=== PATIENT | female | born 1960 | race Caucasian/White ===

== ENCOUNTER → 2016-11-16 | Outpatient (REF) | payer MEDICARE ==
[~2016-11-16] MED LIST: AMLO10TA2 PO; ARMO90TA PO; CIPR-249 PO; HYDR-3713 PO; LOSA100T36 PO; MOTR200T44 PO
== END ==
LOC: M SFHCLERA 11:58
PROVIDERS: ATTEND Family Medicine
DX: M79.1 Myalgia (principal); E07.9 Disorder of thyroid, unspecified; I10 Essential (primary) hypertension; E66.9 Obesity, unspecified

== ENCOUNTER → 2016-11-26 | Outpatient (CLI) | payer MEDICARE ==
[2016-11-26 11:23] LABS: BASO % 0.5 % (0.0-1.0); EOS # 0.1 K/mm3 (0.0-0.50); EOS % 2.3 % (0.0-3.0); LARGE UNSTAINED CELL # 0.2 K/mm3 (0.0-0.4); LARGE UNSTAINED CELL % 3.3 % (0.0-4.0); LYMPH % 37.9 % (24.0-44.0); MEAN CORPUSCULAR HEMOGLOBIN 30.9 pg (27.0-33.0); MEAN CORPUSCULAR HGB CONC 33.6 g/dl (32.0-36.5); MEAN CORPUSCULAR VOLUME 91.8 fl (80.0-96.0); MONO # 0.3 K/mm3 (0.0-0.8); MONO % 6.1 % (0.0-5.0); NEUTROPHILS # 2.6 K/mm3 (1.8-7.7); NEUTROPHILS % 49.9 % (36.0-66.0); PLATELET COUNT, AUTOMATED 195 k/mm3 (150-450); RED CELL DISTRIBUTION WIDTH 12.9 % (11.5-14.5); WHITE BLOOD COUNT 5.2 K/mm3 (4.0-10.0)
[2016-11-26 11:38] LABS: ALBUMIN 3.6 GM/DL (3.2-5.2); ALKALINE PHOSPHATASE 74 U/L (45-117); ALT/SGPT 54 U/L (12-78); ANION GAP 8 MEQ/L (8-16); AST/SGOT 23 U/L (15-37); BILIRUBIN,TOTAL 0.4 MG/DL (0.2-1.0); BLOOD UREA NITROGEN 17 MG/DL (7-18); CALCIUM LEVEL 8.9 MG/DL (8.5-10.1); CARBON DIOXIDE LEVEL 27 MEQ/L (21-32); CHLORIDE LEVEL 109 MEQ/L (98-107); CHOLESTEROL LEVEL 261 MG/DL (<200); CREATININE FOR GFR 0.79 MG/DL (0.55-1.02); FREE T4 0.67 NG/DL (0.76-1.46); GLOMERULAR FILTRATION RATE > 60.0 (>51); GLUCOSE, FASTING 100 MG/DL (70-105); POTASSIUM SERUM 4.6 MEQ/L (3.5-5.1); SODIUM LEVEL 144 MEQ/L (136-145); TOTAL PROTEIN 7.2 GM/DL (6.4-8.2); TRIGLYCERIDES LEVEL 119 MG/DL (<150)
== END ==
LOC: M SMT 08:56
PROVIDERS: ATTEND Family Medicine
DX: M79.1 Myalgia (principal); E07.9 Disorder of thyroid, unspecified; I10 Essential (primary) hypertension; E66.9 Obesity, unspecified; R73.01 Impaired fasting glucose

== ENCOUNTER → 2017-02-14 | Outpatient (CLI) | payer MEDICARE ==
[2017-02-14 13:42] LABS: THYROID PEROXIDASE ANTIBODY < 28.0 U/ML (<60.0)
[2017-02-14 13:55] LABS: ALBUMIN 3.8 GM/DL (3.2-5.2); ALBUMIN/GLOBULIN RATIO 1.09 (1.00-1.93); ALKALINE PHOSPHATASE 70 U/L (45-117); ALT/SGPT 49 U/L (12-78); ANION GAP 7 MEQ/L (8-16); AST/SGOT 21 U/L (7-37); BILIRUBIN,TOTAL 0.6 MG/DL (0.2-1.0); BLOOD UREA NITROGEN 10 MG/DL (7-18); CALCIUM LEVEL 9.3 MG/DL (8.5-10.1); CARBON DIOXIDE LEVEL 28 MEQ/L (21-32); CHLORIDE LEVEL 108 MEQ/L (98-107); CREATININE FOR GFR 0.77 MG/DL (0.55-1.02); FREE T4 0.94 NG/DL (0.76-1.46); GLOMERULAR FILTRATION RATE > 60.0 (>51); GLUCOSE, FASTING 93 MG/DL (70-105); POTASSIUM SERUM 4.6 MEQ/L (3.5-5.1); SODIUM LEVEL 143 MEQ/L (136-145); TOTAL PROTEIN 7.3 GM/DL (6.4-8.2)
== END ==
LOC: M SMT 11:32
PROVIDERS: ATTEND Family Medicine
DX: E03.9 Hypothyroidism, unspecified (principal); I10 Essential (primary) hypertension; M54.5 Low back pain

== ENCOUNTER → 2017-03-11 | Outpatient (REF) | payer MEDICARE ==
[2017-03-11 13:26] LABS: C REACTIVE PROTEIN QUANTITATIV 0.61 MG/DL (0.00-0.30)
[2017-03-11 14:07] LABS: ERYTHROCYTE SEDIMENTATION RATE 46 mm/hr (0-30)
== END ==
LOC: M LAB REF 11:24
DX: M35.3 Polymyalgia rheumatica (principal)
CPT/HCPCS: 86140

== ENCOUNTER → 2017-10-10 | Outpatient (CLI) | payer MEDICARE ==
[2017-10-10 18:08] LABS: THYROGLOBULIN ANTIBODY 42.6 U/ML (<60.0); THYROID PEROXIDASE ANTIBODY < 28.0 U/ML (<60.0)
[2017-10-10 18:17] LABS: FREE T3 2.8 PG/ML (2.2-4.0); FREE T4 0.99 NG/DL (0.76-1.46)
[2017-10-14 14:49] LABS: T3 REVERSE 20.2 ng/dL (9.2-24.1)
== END ==
LOC: M SMT 13:07
DX: E03.9 Hypothyroidism, unspecified (principal)
CPT/HCPCS: 84443

== ENCOUNTER → 2018-03-09 | Outpatient (REF) | payer MEDICARE ==
[~2018-03-09] MED LIST changes: -AMLO10TA2 PO; +AMLO10TA5 PO; -LOSA100T36 PO; +LOSA100T50 PO
[2018-03-09 16:12] LABS: ALBUMIN 3.8 GM/DL (3.2-5.2); ALT/SGPT 76 U/L (12-78); BILIRUBIN,TOTAL 0.5 MG/DL (0.2-1.0); BLOOD UREA NITROGEN 17 MG/DL (7-18); CALCIUM LEVEL 9.2 MG/DL (8.5-10.1); CARBON DIOXIDE LEVEL 29 MEQ/L (21-32); CHLORIDE LEVEL 103 MEQ/L (98-107); CHOLESTEROL LEVEL 276 MG/DL (<200); CHOLESTEROL RISK RATIO 4.758 (<5); CREATININE FOR GFR 0.94 MG/DL (0.55-1.30); FREE T4 0.87 NG/DL (0.76-1.46); GLOMERULAR FILTRATION RATE > 60.0 (>51); GLUCOSE, FASTING 98 MG/DL (70-100); HDL CHOLESTEROL 58 MG/DL (>40); LDL CHOLESTEROL 189 MG/DL (<100); NON-HDL-C 218 MG/DL; POTASSIUM SERUM 4.2 MEQ/L (3.5-5.1); SODIUM LEVEL 140 MEQ/L (136-145); TOTAL PROTEIN 7.1 GM/DL (6.4-8.2); TRIGLYCERIDES LEVEL 143 MG/DL (<150)
== END ==
LOC: M SMT 13:02
PROVIDERS: ATTEND Physician Assistant
DX: E03.9 Hypothyroidism, unspecified (principal); I10 Essential (primary) hypertension

== ENCOUNTER → 2018-04-10 | Outpatient (CLI) | payer MEDICARE ==
--- NOTE | 2018-04-10 17:31 | REP ---
Thyroid sonography: History: Multinodular thyroid. Comparison sonography August 21, 2012. This prior studies report as showing a 6 mm nodule in the lower pole of the right lobe. Today's sonographic findings: The thyroid isthmus is 0.3 cm thick. Right lobe dimensions are 4.6 x 1.5 x 1.2 cm. Left lobe dimensions are 4.0 x 1.4 x 1.1 cm. The nodule previously identified in the right lobe is a little larger today measuring 1.0 x 0.4 x 1.0 cm. It has well-circumscribed margin without discernible microcalcification. No other thyroid nodule seen. No extrathyroidal mass or adenopathy seen. Impression: Solitary 1 cm nodule right lobe. This has increased slightly in size from the 2013 prior study. Electronically Signed by Prince Hatch MD 04/10/2018 05:53 P
== END ==
LOC: M RAD 10:33
PROVIDERS: ATTEND Internal Medicine
DX: E04.1 Nontoxic single thyroid nodule (principal)

== ENCOUNTER → 2018-05-03 | Outpatient (CLI) | payer MEDICARE ==
[2018-05-03 18:40] LABS: CHOLESTEROL RISK RATIO 4.457 (<5)
== END ==
LOC: M SMT 11:12
PROVIDERS: ATTEND Family Medicine
DX: E66.01 Morbid (severe) obesity due to excess calories (principal); Z13.220 Encounter for screening for lipoid disorders

== ENCOUNTER → 2018-06-27 | Outpatient (CLI) | payer MEDICARE ==
[2018-06-27 15:35] LABS: FREE T3 2.5 PG/ML (2.2-4.0); FREE T4 0.89 NG/DL (0.76-1.46); THYROID STIMULATING HORMONE 1.32 uIU/ML (0.358-3.740)
== END ==
LOC: M SMT 10:35
PROVIDERS: ATTEND Internal Medicine
DX: E03.8 Other specified hypothyroidism (principal); E04.2 Nontoxic multinodular goiter

== ENCOUNTER → 2018-09-04 | Outpatient (CLI) | payer MEDICARE ==
[2018-09-04 13:26] LABS: BASO # 0.1 10^3/uL (0.0-0.2); BASO % 0.8 % (0.0-1.0); EOS # 0.2 10^3/uL (0.0-0.50); EOS % 2.8 % (0.0-3.0); HEMATOCRIT 42.6 % (36.0-47.0); HEMOGLOBIN 13.3 g/dl (12.0-15.5); LYMPH # 2.3 10^3/uL (1.5-4.5); LYMPH % 35.3 % (24.0-44.0); MEAN CORPUSCULAR HEMOGLOBIN 30.2 pg (27.0-33.0); MEAN CORPUSCULAR HGB CONC 31.2 g/dl (32.0-36.5); MEAN CORPUSCULAR VOLUME 96.8 fl (80.0-96.0); MONO # 0.6 10^3/uL (0.0-0.8); MONO % 8.9 % (0.0-5.0); NEUTROPHILS # 3.4 10^3/uL (1.8-7.7); NEUTROPHILS % 51.9 % (36.0-66.0); PLATELET COUNT, AUTOMATED 190 10^3/uL (150-450); WHITE BLOOD COUNT 6.5 10^3/uL (4.0-10.0)
[2018-09-04 13:40] LABS: BLOOD UREA NITROGEN 16 MG/DL (7-18); CALCIUM LEVEL 8.7 MG/DL (8.5-10.1); CARBON DIOXIDE LEVEL 32 MEQ/L (21-32); CHLORIDE LEVEL 105 MEQ/L (98-107); CREATININE FOR GFR 0.96 MG/DL (0.55-1.30); FREE T4 0.78 NG/DL (0.76-1.46); GLOMERULAR FILTRATION RATE > 60.0 (>51); GLUCOSE, FASTING 103 MG/DL (70-100); POTASSIUM SERUM 3.9 MEQ/L (3.5-5.1); SODIUM LEVEL 141 MEQ/L (136-145); THYROGLOBULIN ANTIBODY < 15.0 U/ML (<60.0); THYROID PEROXIDASE ANTIBODY < 28.0 U/ML (<60.0)
[2018-09-06 00:09] LABS: Lyme Disease IgG/IgM Antibodie <0.91 ISR (0.00-0.90); Lyme Disease IgM Ab Quantitati <0.80 index (0.00-0.79)
== END ==
LOC: M SMT 08:11
PROVIDERS: ATTEND Physician Assistant
DX: R53.83 Other fatigue (principal); E03.9 Hypothyroidism, unspecified

== ENCOUNTER → 2019-09-13 | Outpatient (CLI) | payer MEDICARE ==
--- NOTE | 2019-09-14 02:42 | REP ---
REASON: Followup. COMPARISON: 04/10/2018, which showed a 1 cm sized nodule in the right lobe of the thyroid gland. Today's examination shows the right lobe of the thyroid gland to measure 3.5 x 2 x 1.3 cm and left lobe to measure 4.3 x 1.2 x 1.4 cm. In the right lobe, there is a 1 cm sized nodule, which is unchanged. In the lower pole of the left lobe, there is a 4 mm sized possible solid nodule. Also seen in the right lobe, there is a possible 5 mm sized nodule. The isthmus measures 4 mm. IMPRESSION: No significant change compared to the prior exam.
== END ==
LOC: M WHC 13:34
PROVIDERS: ATTEND Internal Medicine
DX: E03.8 Other specified hypothyroidism (principal); E04.2 Nontoxic multinodular goiter

== ENCOUNTER → 2019-09-13 | Outpatient (CLI) | payer MEDICARE ==
[2019-09-13 16:12] LABS: FREE T4 1.14 NG/DL (0.76-1.46); THYROID STIMULATING HORMONE 0.03 uIU/ML (0.358-3.740)
== END ==
LOC: M PLALAB 13:23
PROVIDERS: ATTEND Internal Medicine
DX: E03.8 Other specified hypothyroidism (principal)

== ENCOUNTER → 2020-12-25 | Outpatient (CLI) | payer MEDICARE ==
[~2020-12-25] MED LIST changes: -AMLO10TA5 PO; +AMLO1TAB25 PO
[2020-12-25 10:28] LABS: BASO % 0.5 % (0.0-1.0); EOS # 0.1 10^3/uL (0.0-0.5); EOS % 2.1 % (0.0-3.0); HEMATOCRIT 40.1 % (36.0-47.0); HEMOGLOBIN 13.1 g/dl (12.0-15.5); LYMPH # 1.3 10^3/uL (1.5-5.0); LYMPH % 23.3 % (24.0-44.0); MEAN CORPUSCULAR HEMOGLOBIN 29.4 pg (27.0-33.0); MEAN CORPUSCULAR HGB CONC 32.7 g/dl (32.0-36.5); MEAN CORPUSCULAR VOLUME 89.9 fl (80.0-96.0); MONO # 0.5 10^3/uL (0.0-0.8); MONO % 8.9 % (2.0-8.0); NEUTROPHILS # 3.6 10^3/uL (1.5-8.5); NEUTROPHILS % 64.7 % (36.0-66.0); PLATELET COUNT, AUTOMATED 221 10^3/uL (150-450); RED BLOOD COUNT 4.46 10^6/uL (4.00-5.40); WHITE BLOOD COUNT 5.6 10^3/uL (4.0-10.0)
[2020-12-25 11:00] LABS: HEMOGLOBIN A1c 5.8 %
[2020-12-25 11:04] LABS: ERYTHROCYTE SEDIMENTATION RATE 65 mm/hr (0-30)
[2020-12-25 11:10] LABS: ALBUMIN 3.1 GM/DL (3.2-5.2); ALT/SGPT 53 U/L (12-78); BILIRUBIN,TOTAL 0.9 MG/DL (0.2-1.0); BLOOD UREA NITROGEN 27 MG/DL (7-18); CALCIUM LEVEL 8.9 MG/DL (8.8-10.2); CARBON DIOXIDE LEVEL 30 MEQ/L (21-32); CHLORIDE LEVEL 102 MEQ/L (98-107); CHOLESTEROL LEVEL 184 MG/DL (<200); CHOLESTEROL RISK RATIO 7.076 (<5); CREATININE FOR GFR 1.52 MG/DL (0.55-1.30); GLOMERULAR FILTRATION RATE 36.9 (>45); GLUCOSE, FASTING 105 MG/DL (70-100); HDL CHOLESTEROL 26 MG/DL (>40); LDL CHOLESTEROL 127 MG/DL (<100); NON-HDL-C 158 MG/DL; POTASSIUM SERUM 2.9 MEQ/L (3.5-5.1); RHEUMATOID FACTOR QUANT < 10.0 IU/ML (<15.0); SODIUM LEVEL 139 MEQ/L (136-145); TOTAL PROTEIN 6.9 GM/DL (6.4-8.2); TRIGLYCERIDES LEVEL 154 MG/DL (<150)
[2020-12-25 13:12] LABS: TOTAL 25(OH) VITAMIN D 46.4 NG/ML (30.0-100.0)
== END ==
LOC: M PLALAB 08:14
PROVIDERS: ATTEND Family Medicine
DX: R53.83 Other fatigue (principal); Z84.81 Family history of carrier of genetic disease; I10 Essential (primary) hypertension; E03.9 Hypothyroidism, unspecified; R73.01 Impaired fasting glucose; Z79.899 Other long term (current) drug therapy

== ENCOUNTER → 2021-01-27 | Outpatient (CLI) | payer MEDICARE ==
--- NOTE | 2021-01-27 10:43 | REP ---
INDICATION: ELEVATED ERYTHROCYTE SEDIMENTATION RATE COMPARISON: None. TECHNIQUE: AP, lateral, flexion/extension, bilateral oblique, and open-mouth views. FINDINGS: Alignment and lordosis is maintained through the C5-6 level beyond which evaluation is limited due to overlying shoulder artifact. There is no evidence for acute fracture / compression injury or subluxation. No significant degenerative changes are appreciated. Oblique views demonstrate patent neural foramen. Open mouth view demonstrates normal C1-C2 articulation and odontoid process. IMPRESSION: Essentially age-related degenerative changes. Evaluation is made through the C5-6 level beyond which evaluation is limited due to overlying shoulder artifact. <Electronically signed by Roc Mojica > 01/27/21 [id number]
--- NOTE | 2021-01-27 10:44 | REP ---
INDICATION: ELEVATED ERYTHROCYTE SEDIMENTATION RATE COMPARISON: None. TECHNIQUE: AP, lateral, and swimmers views. FINDINGS: Alignment and kyphosis is maintained. Vertebral bodies intact. No acute fracture / compression injury or subluxation. Age-related degenerative changes include minimal endplate sclerosis with subtle disc space narrowing and primarily right-sided osteophytosis. Paravertebral soft tissues are normal. IMPRESSION: Age-related changes. Normal alignment. <Electronically signed by Roc Mojica > 01/27/21 [id number]
--- NOTE | 2021-01-27 10:46 | REP ---
INDICATION: ELEVATED ERYTHROCYTE SEDIMENTATION RATE COMPARISON: None. TECHNIQUE: AP, lateral, flexion/extension, bilateral oblique, and coned-down views. FINDINGS: Alignment and lordosis is maintained. The vertebral bodies including transverse process and spinous processes are intact and normal. There is no evidence for acute fracture / compression injury or subluxation. No evidence for spondylolysis or spondylolisthesis. IMPRESSION: Age-appropriate lumbosacral spine series. <Electronically signed by Roc Mojica > 01/27/21 0749
[2021-01-27 12:21] LABS: ALBUMIN 3.6 GM/DL (3.2-5.2); ALT/SGPT 64 U/L (12-78); BILIRUBIN,DIRECT 0.2 MG/DL (0.0-0.2); BILIRUBIN,TOTAL 0.6 MG/DL (0.2-1.0); BLOOD UREA NITROGEN 17 MG/DL (7-18); C REACTIVE PROTEIN QUANTITATIV 0.34 MG/DL (0.00-0.30); CALCIUM LEVEL 9.4 MG/DL (8.8-10.2); CARBON DIOXIDE LEVEL 30 MEQ/L (21-32); CHLORIDE LEVEL 106 MEQ/L (98-107); CREATININE FOR GFR 0.99 MG/DL (0.55-1.30); GLOMERULAR FILTRATION RATE > 60.0 (>45); GLUCOSE, FASTING 106 MG/DL (70-100); POTASSIUM SERUM 4.1 MEQ/L (3.5-5.1); SODIUM LEVEL 141 MEQ/L (136-145); TOTAL PROTEIN 7.2 GM/DL (6.4-8.2)
== END ==
LOC: M PLAIMG 09:51
PROVIDERS: ATTEND Physician Assistant
DX: R70.0 Elevated erythrocyte sedimentation rate (principal); N17.9 Acute kidney failure, unspecified; E87.6 Hypokalemia

== ENCOUNTER → 2022-12-22 | Outpatient (REF) | payer OTHER ==
[~2022-12-22] MED LIST changes: +LOSA100T46 PO; -LOSA100T50 PO
== END ==
LOC: M LAB REF 21:10
PROVIDERS: ATTEND Physician Assistant
DX: L02.414 Cutaneous abscess of left upper limb (principal)

== ENCOUNTER 2024-12-20 12:46 | Inpatient (IN) | payer MEDICARE, OTHER ==
[~2024-12-20] VITALS: Ht 157.5 cm; Wt 144.5 kg
[2024-12-20 14:07] LABS: BASO # 0.0 10^3/uL (0.0-0.2); BASO % 0.2 % (0.0-1.0); EOS # 0.1 10^3/uL (0.0-0.5); EOS % 0.4 % (0.0-3.0); LYMPH # 1.3 10^3/uL (1.5-5.0); LYMPH % 10.3 % (24.0-44.0); MONO # 0.7 10^3/uL (0.0-0.8); MONO % 6.0 % (2.0-8.0); NEUTROPHILS # 10.2 10^3/uL (1.5-8.5); NEUTROPHILS % 82.9 % (36.0-66.0); PLATELET COUNT, AUTOMATED 203 10^3/uL (150-450)
[2024-12-20 14:18] LABS: INR 0.95
[2024-12-20 14:35] LABS: CALCIUM LEVEL 9.6 MG/DL (8.3-10.6); CARBON DIOXIDE LEVEL 26.0 MMOL/L (20-31); CHLORIDE LEVEL 104.0 MMOL/L (98-107); CREATININE FOR GFR 0.84 MG/DL (0.55-1.30); GLOMERULAR FILTRATION RATE 76.6 (>45); POTASSIUM SERUM 4.5 MMOL/L (3.5-5.1); SODIUM LEVEL 142.0 MMOL/L (136-145)
[2024-12-20] MEDS: LABETALOL 100 MG/20 ML VIAL IV PRN (16:39)
[2024-12-20] MEDS: HYDROMORPHONE HCL 0.5 MG/0.5 ML SYRINGE IV PRN ×2 (16:39→18:22)
[2024-12-20] MEDS ORDERED: MAALOX 30 ML SUSP *UDC PO PRN (20:35)
[2024-12-20] MEDS ORDERED: ONDANSETRON 4MG 2ML VIAL IV PRN (20:35)
[2024-12-20] MEDS ORDERED: MOM 30 ML SUSPENSION UDC PO PRN (20:35)
[2024-12-20] MEDS: amLODIPine 10 MG TAB PO ONE (21:13)
[2024-12-20] MEDS: ACETAMINOPHEN *IV* 1,000 MG in IV 1 EA IV ONE (21:15)
[2024-12-20] MEDS: DOCUSATE SODIUM 100 MG CAPSULE PO SCH (21:16)
[2024-12-20] MEDS: KETOROLAC 30 MG/ML 1 ML VIAL IV PRN (22:12)
[2024-12-20] MEDS: LABETALOL 100 MG/20 ML VIAL IV STA (22:23)
[2024-12-20] MEDS ORDERED: THER2000 PO (23:32)
[2024-12-20] MEDS ORDERED: MAGN400T35 PO (23:32)
[2024-12-20] MEDS ORDERED: POTA2.5T PO (23:32)
[2024-12-20] MEDS ORDERED: HOME MED LIST COMPLETE! XX SCH (23:35)
[2024-12-21] VITALS (26 sets, daily range): BP systolic 136–188; BP diastolic 50–98; TEMP 96.3–98.3; O2SAT 88–99
[2024-12-21] MEDS: MORPHINE 4 MG/ML 1 ML VIAL IV ONE (01:51)
[2024-12-21 06:09] LABS: PLATELET COUNT, AUTOMATED 185 10^3/uL (150-450)
[2024-12-21 06:31] LABS: ALT/SGPT 66.0 U/L (7.0-40); AST/SGOT 46.0 U/L (<34); CALCIUM LEVEL 8.6 MG/DL (8.3-10.6); CARBON DIOXIDE LEVEL 26.0 MMOL/L (20-31); CHLORIDE LEVEL 101.0 MMOL/L (98-107); CREATININE FOR GFR 0.8 MG/DL (0.55-1.30); GLOMERULAR FILTRATION RATE 81.2 (>45); MAGNESIUM LEVEL 2.0 MG/DL (1.8-2.4); POTASSIUM SERUM 3.7 MMOL/L (3.5-5.1); SODIUM LEVEL 138.0 MMOL/L (136-145)
[2024-12-21 07:11] LABS: CHOLESTEROL LEVEL 232.0 MG/DL (<200); CHOLESTEROL RISK RATIO 4.22 (<5); LDL CHOLESTEROL 153.3 MG/DL (<100); NON-HDL-C 177.1 MG/DL; TRIGLYCERIDES LEVEL 119.0 MG/DL (<150)
[2024-12-21 07:52] LABS: CPK CREATINE PHOSPHOKINASE 111.0 U/L (34-145)
[2024-12-21 08:03] LABS: ESTIMATED AVERAGE GLUCOSE 114.0 MG/DL (60-110)
[2024-12-21] MEDS: amLODIPine 5 MG TAB PO SCH (08:09)
[2024-12-21] MEDS: PANTOPRAZOLE 40MG VIAL IV SCH (08:10)
[2024-12-21] MEDS: D5W/0.9% SODIUM CHLORIDE 1,000 ML IV SCH (08:10)
[2024-12-21] MEDS: ATORVASTATIN 20 MG TAB PO SCH (09:00)
[2024-12-21 09:57] LABS: INR 1.01
[2024-12-21] MEDS: CLINDAMYCIN 600 MG/50 ML PREMIX BAG As Ordered ONE (14:23)
[2024-12-21] MEDS ORDERED: MIDAZOLAM INJ 2 MG/2 ML VIAL As Ordered ONE (15:51)
[2024-12-21] MEDS ORDERED: LIDOCAINE 2% 100 MG/5 ML SDV (FOR ANES.) As Ordered ONE (15:51)
[2024-12-21] MEDS ORDERED: ONDANSETRON 4MG 2ML VIAL As Ordered ONE (15:52)
[2024-12-21] MEDS ORDERED: ROCURONIUM BROMIDE 50MG/5ML VIAL As Ordered ONE (15:53)
[2024-12-21] MEDS: TRANEXAMIC ACID 100 MG/ML 10ML VIAL As Ordered ONE (16:40)
[2024-12-21] MEDS ORDERED: SUCCINYLCHOLINE 100MG/5ML SYRINGE As Ordered ONE (16:44)
[2024-12-21] MEDS ORDERED: ACETAMINOPHEN 1000MG/100ML IV BAG As Ordered ONE (16:56)
[2024-12-21] MEDS ORDERED: PHENYLephrine 500MCG 5ML (100MCG/ML) SYRINGE As Ordered ONE (16:56)
[2024-12-21] MEDS ORDERED: SUGAMMADEX SODIUM 500 MG/5 ML VIAL As Ordered ONE (16:57)
[2024-12-21] MEDS ORDERED: ONDANSETRON 4MG 2ML VIAL IV PRN (17:40)
[2024-12-21] MEDS: ENOXAPARIN 60 MG/0.6 ML SYRINGE (J1650 PER 10MG) SC SCH (18:00)
[2024-12-21] MEDS: VANCOMYCIN 1000MG/20ML VIAL As Ordered ONE (18:21)
[2024-12-21] MEDS: HYDROMORPHONE HCL 0.5 MG/0.5 ML SYRINGE IV PRN (19:13)
[2024-12-21] MEDS: hydrALAZINE 20 MG/ML 1 ML VIAL IV PRN (19:36)
[2024-12-21] MEDS: traMADol 50 MG TAB PO ONE ×2 (21:00→23:24)
[2024-12-21] MEDS ORDERED: HEPARIN SOD 5000 UNITS/ML 1 ML VIAL/SYRINGE SC SCH (21:00)
[2024-12-21] MEDS: ceFAZolin SODIUM 2 GM in DEXTROSE 5% (D5W) ADV/MINI-BAG 50 ML IV SCH (23:24)
[2024-12-22] VITALS (22 sets, daily range): BP systolic 140–176; BP diastolic 58–91; TEMP 96.5–98.9; O2SAT 86–100
[2024-12-22 06:18] LABS: BASO # 0.0 10^3/uL (0.0-0.2); BASO % 0.1 % (0.0-1.0); EOS # 0.0 10^3/uL (0.0-0.5); EOS % 0.2 % (0.0-3.0); LYMPH # 1.3 10^3/uL (1.5-5.0); LYMPH % 15.2 % (24.0-44.0); MONO # 0.6 10^3/uL (0.0-0.8); MONO % 7.8 % (2.0-8.0); NEUTROPHILS # 6.3 10^3/uL (1.5-8.5); NEUTROPHILS % 76.5 % (36.0-66.0); PLATELET COUNT, AUTOMATED 174 10^3/uL (150-450)
[2024-12-22 06:41] LABS: ALT/SGPT 104 U/L (7.0-40); AST/SGOT 71 U/L (<34); CALCIUM LEVEL 8.3 MG/DL (8.3-10.6); CARBON DIOXIDE LEVEL 27 MMOL/L (20-31); CHLORIDE LEVEL 107 MMOL/L (98-107); CREATININE FOR GFR 0.72 MG/DL (0.55-1.30); GLOMERULAR FILTRATION RATE > 90.0 (>45); MAGNESIUM LEVEL 2.0 MG/DL (1.8-2.4); POTASSIUM SERUM 3.9 MMOL/L (3.5-5.1); SODIUM LEVEL 143 MMOL/L (136-145)
[2024-12-22] MEDS: SENNOSIDES/DOCUSATE SODIUM 8.6 MG/50MG TAB PO SCH (09:00)
[2024-12-22] MEDS ORDERED: MIRALAX *UNIT DOSE* 17 GM PACKET PO PRN (09:30)
[2024-12-22] MEDS ORDERED: MOM 30 ML SUSPENSION UDC PO PRN (09:30)
[2024-12-22] MEDS: ACETAMINOPHEN 325 MG TAB PO PRN (09:53)
[2024-12-22] MEDS: amLODIPine 5 MG TAB PO ONE (15:25)
[2024-12-23 06:00] VITALS: BP 161/82; TEMP 97.3; O2SAT 97
[2024-12-23 06:31] VITALS: O2SAT 97
[2024-12-23 07:01] LABS: BASO # 0.0 10^3/uL (0.0-0.2); BASO % 0.7 % (0.0-1.0); EOS # 0.2 10^3/uL (0.0-0.5); EOS % 2.6 % (0.0-3.0); LYMPH # 2.2 10^3/uL (1.5-5.0); LYMPH % 36.3 % (24.0-44.0); MONO # 0.6 10^3/uL (0.0-0.8); MONO % 8.9 % (2.0-8.0); NEUTROPHILS # 3.2 10^3/uL (1.5-8.5); NEUTROPHILS % 51.2 % (36.0-66.0); PLATELET COUNT, AUTOMATED 171 10^3/uL (150-450)
[2024-12-23 07:34] LABS: ALT/SGPT 66.0 U/L (7.0-40); AST/SGOT 38.0 U/L (<34); CALCIUM LEVEL 9.1 MG/DL (8.3-10.6); CARBON DIOXIDE LEVEL 27.0 MMOL/L (20-31); CHLORIDE LEVEL 105.0 MMOL/L (98-107); CREATININE FOR GFR 0.76 MG/DL (0.55-1.30); GLOMERULAR FILTRATION RATE 86.4 (>45); MAGNESIUM LEVEL 1.9 MG/DL (1.8-2.4); POTASSIUM SERUM 3.8 MMOL/L (3.5-5.1); SODIUM LEVEL 143.0 MMOL/L (136-145)
[2024-12-23] MEDS ORDERED: BISACODYL 10 MG SUPP PR PRN (08:10)
[2024-12-23] MEDS: amLODIPine 10 MG TAB PO SCH (08:16)
[2024-12-23] MEDS: KETOROLAC 30 MG/ML 1 ML VIAL IV SCH (08:26)
[2024-12-23] MEDS: PANTOPRAZOLE 40MG TAB PO SCH (08:27)
[2024-12-23 14:00] VITALS: BP 160/78; TEMP 98.8; O2SAT 96; O2SAT 97
[2024-12-23 21:10] VITALS: BP 154/73; TEMP 98.7; O2SAT 96
[2024-12-23 22:19] VITALS: O2SAT 96
[2024-12-24 06:00] VITALS: BP 156/74; TEMP 96.7; O2SAT 99
[2024-12-24 06:38] VITALS: O2SAT 98
[2024-12-24 07:16] LABS: BASO # 0.0 10^3/uL (0.0-0.2); BASO % 0.7 % (0.0-1.0); EOS # 0.2 10^3/uL (0.0-0.5); EOS % 2.9 % (0.0-3.0); LYMPH # 2.1 10^3/uL (1.5-5.0); LYMPH % 35.5 % (24.0-44.0); MONO # 0.6 10^3/uL (0.0-0.8); MONO % 10.8 % (2.0-8.0); NEUTROPHILS # 2.9 10^3/uL (1.5-8.5); NEUTROPHILS % 49.8 % (36.0-66.0); PLATELET COUNT, AUTOMATED 163 10^3/uL (150-450)
[2024-12-24 07:48] LABS: ALT/SGPT 46.0 U/L (7.0-40); AST/SGOT 25.0 U/L (<34); CALCIUM LEVEL 8.7 MG/DL (8.3-10.6); CARBON DIOXIDE LEVEL 28.0 MMOL/L (20-31); CHLORIDE LEVEL 106.0 MMOL/L (98-107); CREATININE FOR GFR 0.78 MG/DL (0.55-1.30); GLOMERULAR FILTRATION RATE 83.7 (>45); MAGNESIUM LEVEL 1.8 MG/DL (1.8-2.4); POTASSIUM SERUM 4.0 MMOL/L (3.5-5.1); SODIUM LEVEL 144.0 MMOL/L (136-145)
[2024-12-24 14:00] VITALS: BP 150/63; TEMP 98.4; O2SAT 94; O2SAT 95
[2024-12-24 19:59] VITALS: BP 147/67; TEMP 98.2; O2SAT 96
[2024-12-25 05:29] VITALS: BP 163/77; TEMP 99; O2SAT 98
[2024-12-25 14:00] VITALS: BP 152/74; TEMP 97.8; O2SAT 97
[2024-12-25 14:50] VITALS: O2SAT 95
[2024-12-25 19:49] VITALS: BP 169/76; TEMP 98.3; O2SAT 96
[2024-12-26 05:46] VITALS: BP 97/68; TEMP 97; O2SAT 98
[2024-12-26 08:20] VITALS: BP 156/75
[2024-12-26 10:54] VITALS: O2SAT 93
[2024-12-26] MEDS ORDERED: AMLO1TAB25 PO (12:17)
[2024-12-26] MEDS ORDERED: ATOR40TA75 PO (12:17)
[2024-12-26] MEDS ORDERED: CARV12.5 PO (12:18)
[2024-12-26] MEDS ORDERED: ENOX60IN3 SC (12:18)
[2024-12-26] MEDS ORDERED: MIRA3350 PO (12:18)
[2024-12-26] MEDS ORDERED: COLA100C5 PO (12:18)
[2024-12-26 14:00] VITALS: BP 120/78; TEMP 97.6; O2SAT 98
== END 2024-12-26 17:45 | DRG 493 ==
LOC: M ED 12:46 → EDBD 12:46 → UNDOADMIN 20:34 → M ED INP 20:34 → M PCU 12-21 00:13 → M MS5PR 12-22 11:23
PROVIDERS: ADMIT Student in an Organized Health Care Education/Training Program; ATTEND Internal Medicine
PROC: 0QSH06Z Reposition Left Tibia with Intramedullary Internal Fixation Device, Open Approach (ICD-10-PCS; principal; 2024-12-21 15:00)
DX: S82.302A Unspecified fracture of lower end of left tibia, initial encounter for closed fracture (principal); I50.32 Chronic diastolic (congestive) heart failure; I16.9 Hypertensive crisis, unspecified; G47.33 Obstructive sleep apnea (adult) (pediatric); S82.832A Other fracture of upper and lower end of left fibula, initial encounter for closed fracture; R74.01 Elevation of levels of liver transaminase levels; K76.0 Fatty (change of) liver, not elsewhere classified; I11.0 Hypertensive heart disease with heart failure; E78.5 Hyperlipidemia, unspecified; Z91.199 Patient's noncompliance with other medical treatment and regimen due to unspecified reason; W01.0XXA Fall on same level from slipping, tripping and stumbling without subsequent striking against object, initial encounter; Z79.899 Other long term (current) drug therapy; Z88.5 Allergy status to narcotic agent; Y92.009 Unspecified place in unspecified non-institutional (private) residence as the place of occurrence of the external cause

== ENCOUNTER → 2025-01-10 | Outpatient (CLI) | payer MEDICARE ==
[~2025-01-10] MED LIST changes: +ATOR40TA75 PO; +CARV12.5 PO; +COLA100C5 PO; +ENOX60IN3 SC; +MAGN400T35 PO; +MIRA3350 PO; +POTA2.5T PO; +THER2000 PO
== END ==
LOC: M SOG 07:20
PROVIDERS: ATTEND Physician Assistant
DX: M79.662 Pain in left lower leg (principal)

== ENCOUNTER → 2025-02-26 | Outpatient (CLI) | payer MEDICARE | LOC: M SOG 07:34 | PROVIDERS: ATTEND Physician Assistant | DX: M79.662 Pain in left lower leg (principal) ==